=== PATIENT | male | born 1980 | race Caucasian/White ===

== ENCOUNTER 2019-04-26 11:14 | Emergency (ER) | payer SELFPAY ==
[2019-04-26 11:18] VITALS: BP 129/81; PULSE 103; RESP 20; TEMP 36.8; O2SAT 96
[2019-04-26] MEDS: Povidone-Iodine Soln. 118 ML BTL (11:35)
[2019-04-26] MEDS: Lidocaine 1% Multi-Dose 50 ML VIAL (11:35)
--- NOTE | 2019-04-26 11:46 | ED.GENADUL_ITS ---
Discharge Plan Disposition Patient Disposition: HOME Condition: Stable Discharge Details Chief Complaint: Cellulitis Clinical Impression: Abscess Primary Care Provider: None,None ED Provider: Terrell Perez Home Meds and New Rx's Prescriptions: New sulfamethoxazole-trimethoprim [Bactrim DS] 800-160 mg tablet 1 tab PO BID 7 Days Qty: 14 RF: 0 Discharge Instructions Instructions: Abscess (ED) Additional Instructions: 1. Drink plenty of fluids. 2. Continue all medications as prescribed. 3. Acetaminophen 1000mg every 4 hours (up to 5 time a day) and/or ibuprofen 600m g every 6 hours as needed for fever or pain. 4. Frequent warm compresses 5. Bactrim DS twice a day for 7 days. Return to the Emergency Department (ED) if your condition worsens, does not improve as expected, or for ANY other concerns. Specifically, return if you have new or uncontrolled pain, worsening fever, difficulty breathing, vomiting, or are unable to drink fluids. Medical Decision Making Presents with worsening local erythema, induration, and discharge from a lesion proximal to his right patella and associate with him wearing kneepads at work. Describes frequently expressing purulent material from the central lesion. Exam consistent with a low-grade abscess/cellulitis. Incision and drainage using 1% lidocaine and minimal male purulent material expressed. Discharged with plan for regular dressing changes, frequent soaks, Bactrim, and outpatient follow-up as needed. Given usual customary return instructions at discharge. Medical Records Medical records reviewed: Yes I reviewed the patient's medical records. HPI 48-year-old gentleman with unremarkable past medical history. Presents with worsening pain, redness, and swelling proximal to his right patella. He endorses first noticing a pimple in that region and has frequently squeeze that area to express purulent drainage. However, he has had increased tenderness, swelling, and erythema. He also notes sensation of pain radiating proximally along the medial aspect of his right leg and distal to his pretibial region. He otherwise denies fever/chills, dyspnea, palpitations, generalized proximal erythema, or other exanthem. He has had no loss of motion or loss sensation distally. General Date/Time Provider Initiated Documentation: 04/26/19 11:41 . Related Data Home Medications Medication Instructions Recorded Confirmed sulfamethoxazole-trimethoprim 1 tab PO BID 7 Days #14 tab 04/26/19 [Bactrim DS] Previous Rx's Medication Instructions Recorded sulfamethoxazole-trimethoprim 1 tab PO BID 7 Days #14 tab 04/26/19 [Bactrim DS] Allergies Allergy/AdvReac Type Severity Reaction Status Date / Time No Known Allergies Allergy Unverified 04/26/19 11:21 General Stated Complaint: Cellulitis PITER: 3 Review of Systems All systems reviewed & are unremarkable except as noted in HPI and below PFSH Social History Smoking/Tobacco Use Status: Current every day Drug use: Daily Substance use type: marijuana Do you feel safe at home: Yes Do you feel safe in your relationship?: Yes Exam Narrative Exam Narrative: Nursing note and vital signs have been reviewed and noted. GENERAL: alert, active, no acute distress, well -hydrated, well-nourished HEENT: atraumatic/normocephalic, PERRLA, EOMI, conjunctiva clear, external ears/canals normal, nasal mucosa normal NECK: supple, full range of motion CARDIOVASCULAR: nl pulses, no edema PULMONARY: nl effort, no audible wheezing or stridor ABDOMEN: non-distended EXTREMITY: normal muscle tone, all joints with FROM, no deformity NUERO: normal mentation, moving all extremities, normal stance and gait, PSYCH: alert and oriented SKIN: 3 cm diameter erythematous patch proximal to the patella on the right leg. Region is indurated with a central pustule. No palpable fluctuance. No erythema proximally or distally. Course Vital Signs Vital signs: Vital Signs Temperature 98.2 F 04/26/19 11:18 Pulse 103 H 04/26/19 11:18 Respiratory Rate 20 04/26/19 11:18 Blood Pressure 129/81 04/26/19 11:18 Pulse Oximetry 96 04/26/19 11:18 Temperature 98.2 F 04/26/19 11:18 Temperature Source Skin 04/26/19 11:18 Pulse 103 H 04/26/19 11:18 Respiratory Rate 20 04/26/19 11:18 Respiratory Effort Non-Labored 04/26/19 11:21 Blood Pressure 129/81 04/26/19 11:18 Blood Pressure Position Sitting 04/26/19 11:18 Pulse Oximetry 96 04/26/19 11:18 Oxygen Delivery Method Room Air 04/26/19 11:18 Oxygen Flow Rate 0 04/26/19 11:18 Procedures Abscess I/D Site: Lower Extremity Side (if applicable): Right Sedation/analgesia: None Local Anesthetic: Lidocaine 1% Amount of anesthesia used (mL): 2 Technique: Incised with #11 Blade Amount of fluid expressed (mL): 0.5 Irrigation: No Packing used?: None Complications: Other (None)
== END 2019-04-26 11:53 | disposition home or self-care (01) ==
LOC: ER 11:58
PROVIDERS: Emergency Provider Emergency Medicine
DX: L02.415 Cutaneous abscess of right lower limb (principal)
CPT/HCPCS: 10060; 99283

== ENCOUNTER 2019-09-02 12:39 | Outpatient (CLI) | payer SELFPAY ==
[2019-09-09 10:53] LABS: COVID-19 RT-PCR Result Not Detected (NotDetected)
== END 2019-09-02 12:59 ==
PROVIDERS: Visit Provider Family Medicine
DX: Z20.828 Contact with and (suspected) exposure to other viral communicable diseases (principal); Z11.59 Encounter for screening for other viral diseases
CPT/HCPCS: 87449; U0003

== ENCOUNTER 2020-05-04 14:42 | Emergency (ER) | payer SELFPAY ==
[2020-05-04 14:48] VITALS: BP 154/95; PULSE 98; RESP 18; TEMP 36.6; O2SAT 97
--- NOTE | 2020-05-04 16:00 | DI.RAD_ITS ---
EXAM: XR HAND RT COMPLETE CLINICAL HISTORY: trauma 2 months ago, pain 1st MC. TECHNIQUE: 2D digital imaging was performed. COMPARISON: No exams were available for comparison FINDINGS: BONES: No acute fracture is present. No bony destructive lesion is seen. JOINTS: No dislocation present. SOFT TISSUE: Normal. IMPRESSION: Unremarkable radiographs of the right hand. DATA REPOSITORY: RADIATION DOSE DELIVERED:
--- NOTE | 2020-05-04 16:28 | DI.VRAD_ITS ---
PROCEDURE INFORMATION: Exam: XR Right Hand Exam date and time: 05/04/2020 4:19 PM Age: 39 years old Clinical indication: Right; Patient HX: Hit hammer on hand about 2 months ago, still pain and numbness up arm TECHNIQUE: Imaging protocol: XR Right hand. Views: 3 or more views. COMPARISON: No relevant prior studies available. FINDINGS: Bones/joints: Normal. Soft tissues: Normal. IMPRESSION: No acute findings. Dictated and Authenticated by: Carlos Barry MD. Ordering:DARIANA Adame MD
--- NOTE | 2020-05-04 17:00 | ED.GENADUL_ITS ---
Discharge Plan Disposition Patient Disposition: HOME Condition: Stable Discharge Details Clinical Impression: Chronic pain of right hand Primary Care Provider: None,None ED Provider: Wendi Dillon Home Meds and New Rx's Prescriptions: No Action No Known Home Meds RF: 0 Discharge Instructions Instructions: Chronic Pain (ED) Additional Instructions: Please return immediately to the emergency department if you develop any new or worsening symptoms, if your condition does not improve as expected, or if you become otherwise concerned. It is extremely important that you call soon as possible to make an appointment to be seen in follow-up for this visit by your primary care doctor and by an orthopedic surgeon. Referrals: Eleazar Rollins MD [ [facility] STAFF PHYSICIAN] - Discharge Data Discharge Date/Time-TO BE ENTERED AT DEPARTURE: 05/04/20 17:20 Medical Decision Making Garth Mercedes is a 39-year-old man without reported history of major medical problems who presented to the emergency department with 3-1/2 months of pain over the first MCP on the right after hitting this area with a hammer accidentally. On exam patient is well and nontoxic-appearing. There is edema of the right thenar eminence, diffuse tenderness of the first MC and first MCP, patient able to flex/extend first digit fully has significant pain with flexion/extension against resistance. Concern for possible chronic bony pathology, possible UCL injury. Plan for x-ray. Exam/history at this time not consistent with septic arthritis, other infectious etiology of pain. X-rays negative. Plan for thumb spica, outpatient follow-up with orthopedics. Lengthy discussion with Patient regarding return to emergency department precautions, home care, and importance of outpatient follow-up. Pt verbalizes understanding of the plan and is amenable. Patient discharged to home with clear plan for outpatient follow-up. All questions were answered. Disposition decision was made weighing the risks and benefits of hospitalization versus outpatient treatment, the risk for further decompensation, and the patient's wishes. Medical Records Medical records reviewed: Yes I reviewed the patient's medical records. Imaging Data Radiologic Study: Attestation: I personally reviewed and interpreted this imaging study as follows: Radiologist's impression: Exam(s) PROCEDURE INFORMATION: Exam: XR Right Hand Exam date and time: 05/04/2020 4:19 PM Age: 39 years old Clinical indication: Right; Patient HX: Hit hammer on hand about 2 months ago, still pain and numbness up arm TECHNIQUE: Imaging protocol: XR Right hand. Views: 3 or more views. COMPARISON: No relevant prior studies available. FINDINGS: Bones/joints: Normal. Soft tissues: Normal. IMPRESSION: No acute findings. HPI General Mode of arrival: ambulatory . Date/Time Provider Initiated Documentation: 05/04/20 14:51 . Limitations to Documentation: no limitations . Information obtained by: patient, RN notes reviewed and old records reviewed . HPI Narrative: Garth Mercedes is a 39-year-old man without history of major medical problems presenting to the emergency department with right hand pain. Patient reports that approximately 2 and half months ago he struck his right hand in the area of the first metacarpal with a hammer. Patient reports that he has had ongoing persistent pain since that time. He denies worsening of the pain. Patient states that pain increases with forced extension of the thumb. No new trauma. He reports that he has had swelling in the area of the thenar eminence since the injury. No redness or other rash. No recent change in symptoms. He denies fevers, shortness of breath, cough, numbness, weakness, vomiting, diarrhea. Feels otherwise well in his usual state of health. Related Data Home Medications Medication Instructions Recorded Confirmed Unknown [No Known Home Meds] 05/04/20 05/04/20 Allergies Allergy/AdvReac Type Severity Reaction Status Date / Time No Known Allergies Allergy Unverified 05/04/20 14:52 General Stated Complaint: Orthopedic PITER: 4 Review of Systems Narrative: Constitutional: denies fevers Eyes: denies eye pain ENT: denies ear pain, dental pain, sore throat Cardiovascular: denies chest pain Respiratory: denies SOB, cough GI: denies abdominal pain, vomiting, diarrhea : denies flank pain MSK: denies back pain, neck pain, reports hand pain Skin: denies rash Neuro: denies headaches, numbness, weakness [facility] Social History Smoking/Tobacco Use Status: Current every day Tobacco Type: cigarettes Smoking risk assessment performed?: Yes Alcohol Intake: current Alcohol Intake frequency: holidays/special occasions only Drug use: Daily Substance use type: marijuana Do you feel safe at home: Yes Do you feel safe in your relationship?: Yes Exam Narrative Exam Narrative: Constitutional: well and [id number], pleasant, conversing normally HENT: head atraumatic/normocephalic/normal inspection, mucous membranes moist Eyes: conjunctiva normal, sclera normal, pupils 3mm b/l Neck: no stridor, normal ROM, trachea midline Resp: normal work of breathing, speaking in full sentences Cardio: normal rate, normal rhythm Skin: warm, dry, normal color, no rash Neuro: alert, not altered, grossly non-focal, normal tone Ext: Right hand with diffuse mild tenderness palpation over the first MCP, dorsal and palmar aspects. Edema of the thenar eminence on the right without overlying skin changes. Full range of motion digits 2 through 5 without pain. Brisk cap refill all digits. Patient able to flex and extend thumb, however significant pain with flexion against resistance/extension against resistance. Full range of motion of the right wrist. Radial pulses intact and symmetric. Sensation of the right distal digit intact. Psych: normal mood, normal affect, normal behavior Course Vital Signs Vital signs: Vital Signs Temperature 36.6 C 05/04/20 14:48 Pulse 98 H 05/04/20 14:48 Respiratory Rate 18 05/04/20 14:48 Blood Pressure 154/95 H 05/04/20 14:48 Pulse Oximetry 97 05/04/20 14:48 Temperature 36.6 C 05/04/20 14:48 Temperature Source Skin 05/04/20 14:48 Pulse 98 H 05/04/20 14:48 Respiratory Rate 18 05/04/20 14:48 Respiratory Effort Non-Labored 05/04/20 14:51 Blood Pressure 154/95 H 05/04/20 14:48 Blood Pressure Position Sitting 05/04/20 14:48 Pulse Oximetry 97 05/04/20 14:48 Oxygen Delivery Method Room Air 05/04/20 14:48 Oxygen Flow Rate 0 05/04/20 14:48 Pain Level 3 05/04/20 14:52
== END 2020-05-04 17:20 | disposition home or self-care (01) ==
PROVIDERS: Emergency Provider Student in an Organized Health Care Education/Training Program
DX: M25.541 Pain in joints of right hand (principal); G89.29 Other chronic pain; W27.0XXA Contact with workbench tool, initial encounter; R60.0 Localized edema
CPT/HCPCS: 29125; 99283; 73130